=== PATIENT | female | born 1970 | race Caucasian/White ===

== ENCOUNTER 2019-09-14 15:54 | Emergency (ER) | payer MEDICAID ==
[~2019-09-14] VITALS: Ht 149.9 cm; Wt 61.4 kg
[~2019-09-14 15:54] MED LIST: CLON-527 PO; ESCI10TA45 PO; HYDR1TAB PO; IBUP-1984 PO; LEVO500T2 PO; LORA1TAB PO; METR-159 PO; ONDA4TAB59 PO; ORPH100T2 PO; TRAZ-91 PO; ZOF4T PO
[2019-09-14 17:30] LABS: BASOPHILS % (AUTO) 0.3 % (0-1); EOSINOPHILS # (AUTO) 0.1 X10'3 (0-0.9); EOSINOPHILS % (AUTO) 1.4 % (0-6); HEMOGLOBIN 13.6 g/dl (12.0-16.0); LYMPHOCYTES # (AUTO) 2.1 X10'3 (1.1-4.8); MEAN CORPUSCULAR HEMOGLOBIN 28.1 PG (27.0-31.0); MEAN CORPUSCULAR VOLUME 82.7 FL (78-98); MEAN PLATELET VOLUME 7.4 FL (7.4-10.4); MONOCYTES # (AUTO) 0.9 X10'3 (0-0.9); MONOCYTES % (AUTO) 9.6 % (2-12); NEUTROPHILS # (AUTO) 6.3 X10'3 (1.8-7.7); NEUTROPHILS % (AUTO) 66.7 % (42-75); PLATELET COUNT 441 X10'3 (140-440); RED BLOOD COUNT 4.84 X10'6 (4.20-5.60); RED CELL DISTRIBUTION WIDTH 13.4 % (11.5-14.5); WHITE BLOOD COUNT 9.5 X10'3 (4.5-11.0)
[2019-09-14 17:34] LABS: CLARITY,URINE SLIGHTLY CLOUDY (Clear); COLOR,URINE YELLOW (Yellow); GLUCOSE, URINE NEGATIVE (Neg); KETONES,URINE NEGATIVE (Neg); LEUKOCYTE ESTERASE ,URINE TRACE (Neg); NITRITES, URINE NEGATIVE (Neg); OCCULT BLOOD,URINE NEGATIVE (Neg); PH,URINE 5.5 (4.8-8.0); PROTEIN,URINE NEGATIVE (Neg); UROBILINOGEN,URINE 0.2 E.U/dL (0.2-1.0)
[2019-09-14 17:36] LABS: UA COLLECTION TYPE CLN CATCH MIDSTREAM
[2019-09-14 17:43] LABS: HCG SERUM QL NEGATIVE
[2019-09-14 17:44] LABS: ALANINE AMINOTRANSFERASE 28 U/L (12-78); ALBUMIN 3.2 G/DL (3.4-5.0); ALBUMIN/GLOBULIN RATIO 0.8 (1.1-1.5); ALKALINE PHOSPHATASE 90 IU/L (46-116); AMYLASE 40 U/L (25-115); ANION GAP 7 (8-16); ASPARTATE AMINO TRANSFERASE 20 U/L (10-37); BILIRUBIN,TOTAL 0.3 MG/DL (0.1-1.0); BLOOD UREA NITROGEN 10 MG/DL (7-18); BUN/CREATININE RATIO 13.2 (6.6-38.0); CALCIUM 8.6 MG/DL (8.5-10.1); CHLORIDE 100 MMOL/L (99-107); CREATININE 0.76 MG/DL (0.40-0.90); GLUCOSE 90 MG/DL (70-104); LIPASE 236 U/L (73-393); POTASSIUM 3.7 MMOL/L (3.5-5.1); SODIUM 134 MMOL/L (135-145); TOTAL CARBON DIOXIDE 26.8 MMOL/L (24-32); TOTAL PROTEIN 7.4 G/DL (6.4-8.2); eGFR 81 ML/MIN
[2019-09-14] MEDS ORDERED: normal saline 1000ML IV soln IVB ONE (17:45)
[2019-09-14] MEDS ORDERED: ondansetron/PF 4mg/2ml inj IV ONE (17:45)
[2019-09-14] MEDS ORDERED: fentaNYL/PF 50MCG/1 ML 2ML syringe IV ONE ×3 (17:45→20:15)
[2019-09-14] MEDS ORDERED: diphenhydrAMINE 50 mg/ml inj IV ONE (17:50)
[2019-09-14 17:51] LABS: BACTERIA,URINE 1+ /HPF (Neg); MUCUS STRANDS NONE SEEN /LPF (Neg); RBC,URINE 0-2 /HPF (0-2); SQUAMOUS EPITHELIAL CELL,UR MANY /LPF (FEW)
--- NOTE | 2019-09-14 17:51 | NUR ---
PT STATES SHE RECEIVED TORADOL INJECTIONS AT [facility], ALSO GETS STEROIDS, CALLED PHARMACY TO DELETE ALLERGY PT CONFIRMED NOT ALLERGIC TO TRADOL,
--- NOTE | 2019-09-14 18:12 | NUR ---
GAVE PT ANOTHER WARM BLANKET AND A GLASS OF ICE WATER FOR PO CHALLENGE ORDERED.
[2019-09-14] MEDS ORDERED: ketorolac tromethamine 15mg/ml inj. IV ONE (19:30)
[2019-09-14] MEDS ORDERED: AMOX-580 PO (19:36)
--- NOTE | 2019-09-14 20:12 | NUR ---
CHARLOTTE CASH MADE AWARE OF PT PRESSURE 97/72 TAKEN BEFORE DISCHARGE/FENTANYL ADMIN. FENTANYL DOSE CHANGED PER VERBAL ORDER TO 25MCG INSTEAD OF THE ORDERED 50MCG. ORDER CHANGED APPROPRIATELY
[2019-09-14 20:37] VITALS: BP 105/68
== END 2019-09-14 20:41 | disposition home or self-care (01) ==
LOC: ER 15:54
DX: K57.92 Diverticulitis of intestine, part unspecified, without perforation or abscess without bleeding (principal); R19.7 Diarrhea, unspecified; G89.29 Other chronic pain; F41.9 Anxiety disorder, unspecified; Z87.442 Personal history of urinary calculi; Z98.890 Other specified postprocedural states; Z88.5 Allergy status to narcotic agent; Z79.899 Other long term (current) drug therapy
CPT/HCPCS: 36415; 80053; 81001; 82150; 83690; 84703; 85025; 96361; 96374; 96375; 96376; 99283; J1200; J1885; J2405; J3010; J7030

== ENCOUNTER 2020-05-04 13:59 | Emergency (ER) | payer OTHER, MEDICAID ==
[~2020-05-04] VITALS: Ht 152.4 cm; Wt 66.0 kg
[2020-05-04 14:21] VITALS: BP 108/74
[2020-05-04] MEDS ORDERED: HYDROcodone/acetaminophen 10/325mg tab PO ONE (15:00)
[2020-05-04] MEDS ORDERED: TETanus/Pertussis (Acell)/Diphther VAC/PF (Tdap-Adult) 0.5ml syringe IMVAC ONE (15:00)
[2020-05-04] MEDS ORDERED: ondansetron 4mg rapidly disintigrating tab PO ONE (15:00)
[2020-05-04] MEDS ORDERED: LIDOcaine 1% W/epiNEPHrine 1:200,000 10ml vial IJ ONE (15:00)
[2020-05-04] MEDS ORDERED: bacitracin 15gm ointment TP ONE (15:00)
[2020-05-04] MEDS ORDERED: LORazepam 2 mg/ml vial IM ONE (15:20)
[2020-05-04] MEDS ORDERED: ketorolac trometh. 30mg/ml inj. IV ONE (15:45)
[2020-05-04] MEDS ORDERED: ceFAZolin 1gm IM kit IM STA (16:37)
[2020-05-04] MEDS ORDERED: CEPH500C5 PO (16:40)
[2020-05-04] MEDS ORDERED: HYDR-4383 PO (16:40)
[2020-05-04] MEDS ORDERED: ONDA4TAB6 PO (16:40)
== END 2020-05-04 17:32 | disposition home or self-care (01) ==
LOC: ER 14:00
DX: S82.092A Other fracture of left patella, initial encounter for closed fracture (principal); G89.29 Other chronic pain; F41.9 Anxiety disorder, unspecified; Z87.59 Personal history of other complications of pregnancy, childbirth and the puerperium; Z98.890 Other specified postprocedural states; Z88.5 Allergy status to narcotic agent; Z79.899 Other long term (current) drug therapy; V87.7XXA Person injured in collision between other specified motor vehicles (traffic), initial encounter; Y93.89 Activity, other specified; Y92.488 Other paved roadways as the place of occurrence of the external cause; Y99.8 Other external cause status
CPT/HCPCS: 12001; 73564; 73700; 90471; 90715; 96372; 96374; 99285; J0690; J1885; J2060

== ENCOUNTER 2022-12-26 21:08 | Emergency (ER) | payer MEDICAID ==
[~2022-12-26] VITALS: Ht 149.9 cm; Wt 72.6 kg
[~2022-12-26 21:08] MED LIST changes: +HYDR-4383 PO; +MELO-102 PO; +ONDA4TAB6 PO; -ORPH100T2 PO; +ORPH100T4 PO
[2022-12-26 21:18] VITALS: BP 95/65
[2022-12-26] MEDS ORDERED: ketorolac trometh inj. 60 MG/2 ML VIAL IM ONE (22:20)
[2022-12-26] MEDS ORDERED: ondansetron 4mg rapidly disintigrating tab PO ONE (22:20)
[2022-12-26] MEDS ORDERED: HYDROcodone/acetaminophen 5mg/325mg tablet PO ONE (22:20)
--- NOTE | 2022-12-26 22:41 | NUR ---
Pt to CT at this time
--- NOTE | 2022-12-27 | NUR ---
Pt and daughter previously at bedside noted to be absent from room; No personal belongings or clothing found in room; Pt had recently asked this RN if the pt could go outside and smoke and then come back; When told this was not allowed, the daughter verbalized understanding; Pt and daughter soon left ED without notifying staff of intention to leave; Pt did not have IV
== END 2022-12-27 00:28 | disposition left against medical advice (07) ==
LOC: ER 21:09
DX: G89.29 Other chronic pain (principal); M25.522 Pain in left elbow; F17.200 Nicotine dependence, unspecified, uncomplicated; F15.20 Other stimulant dependence, uncomplicated; Z88.5 Allergy status to narcotic agent
CPT/HCPCS: 73080; 73090; 73110; 73200; 93971; 96372; 99285; J1885

== ENCOUNTER 2023-12-19 07:07 | Emergency (ER) | payer MEDICAID ==
[~2023-12-19] VITALS: Ht 149.9 cm; Wt 76.1 kg
[2023-12-19 07:21] VITALS: BP 124/73; PULSE 90; RESP 16; TEMP 98.4; O2SAT 98
== END 2023-12-19 09:18 | disposition home or self-care (01) ==
LOC: ER 07:07
DX: M25.422 Effusion, left elbow (principal); M19.022 Primary osteoarthritis, left elbow; F15.90 Other stimulant use, unspecified, uncomplicated; Z88.5 Allergy status to narcotic agent; Z79.899 Other long term (current) drug therapy; Z79.2 Long term (current) use of antibiotics
CPT/HCPCS: 73080; 73200; 99284

== ENCOUNTER 2025-01-24 16:44 | Inpatient (IN) | payer MEDICAID ==
[~2025-01-24] VITALS: Ht 149.9 cm; Wt 79.0 kg
--- NOTE | 2025-01-24 16:53 | ELECTROCARDIOGRAPH REPORT ---
[facility] Test Date: 2025-01-24 Test Time: 16:47:46 Pat Name: ITALO WELLS Department: EMERGENCY ROOM Room: Gender: F Rn Lvn: TRAE : 1970 Requested By: MICHELLE DUTTON Order Number: [id number] Reading MD: Dr. Michelle Dutton Measurements Intervals [place] Rate: 60 P: 54 IA: 178 QRS: -15 QRSD: 89 T: 60 QT: 409 QTc: 409 Interpretive Statements Sinus rhythm Borderline left axis deviation Lateral infarct, acute (LAD) ST elevation, consider inferior injury Electronically Signed On 01-24-2025 18:10:[address] Michelle Dutton Please click the below link to view image of tracing.
--- NOTE | 2025-01-24 16:54 | Physician Documentation ---
History of Present Illness ~ Stated Complaint: CP Time Seen by MD: 16:54 OK to notify your PCP?: Yes Primary Medical Doctor: Roel pelaez Source: patient, family, RN/MD, EMS, RN notes reviewed, EMS notes reviewed, old records Mode of Arrival: EMS Exam Limitations: no limitations HPI 54 year old female seen in bed eleven presents to the emergency department for complaints of chest pain that began at 1600 today. Patient states that she was i n her kitchen cooking a meal when she began having a dull and achy chest pain that radiates to her back. At the time she reports feeling nauseous with diaphoresis. She states she had laid down to help alleviate her pain but called EMS when it did not resolve. Per EMS patient was given Nitro and Aspirin en route. Patient endorses smoking and states she quit meth five years ago. She states that she has been stressed recently but denies any increased weakness or fatigue. Patient states that she slept normally last night. Medication Reconciliation Allergies: Coded Allergies: morphine (Verified Allergy, Unknown, 01/24/25) Scheduled Clonazepam* (Klonopin*), 1 MG PO HS, (Reported) Escitalopram Oxalate* (Lexapro*), 10 MG PO BID, (Reported) Hydrocodone/Acetaminophen (Vicodin 5-500 Tablet), 1 TAB PO BID, (Reported) Hydrocodone/Acetaminophen ([place] 5-325 Tablet), 1 TAB PO TID PRN Ibuprofen* (Motrin*), 1 TAB PO Q8H Levofloxacin (Levaquin), 500 MG PO DAILY Lorazepam* (Ativan*), 1 MG PO DAILY, (Reported) Meloxicam (Meloxicam), 1 TAB PO DAILY Metronidazole* (Flagyl*), 500 MG PO QID Ondansetron Hcl (Ondansetron Hcl), 4 MG PO Q8H PRN N/V Ondansetron Hcl (Ondansetron Hcl), 4 MG PO Q6H Ondansetron Hcl (Zofran), 1 TAB PO Q6H Orphenadrine Citrate (Norflex), 1 TABLET PO BID Trazodone Hcl* (Trazodone Hcl*), 150 MG PO HS, (Reported) Scheduled PRN Ondansetron ODT* (Zofran ODT*), 8 MG PO Q6H PRN Past Medical History Past Medical History: Bowel Obstruction, Diverticulitis, Kidney Stones, Chronic Back Pain, Anxiety Past Surgical History: orthopedic surgeries Alcohol Use: None Drug Use: methamphetamine Lives with: S/O, Family Lives In: Home Occupation: disabled Review of Systems All Other Systems at this time: Reviewed and Negative ROS As stated above in the HPI, otherwise all systems are reviewed and negative. Physical Exam Vital Signs: RN Vital Signs have been reviewed: Yes Pulse Oximetry Reflects: adequate oxygenation Physical Exam General: Patient was uncomfortable appearing. The patient is well developed, well nourished, nontoxic appearing and is in no acute distress. Skin: [place], warm and dry with no rashes. HEENT: Head was normocephalic and atraumatic. Eyes - pupils equal, round, reactive to light and accommodation. Extraocular movements were intact. Conjunctivae were nonicteric. Ears - bilateral tympanic membranes were normal. The mouth and oropharynx were clear with moist mucous membranes. There were no pharyngeal exudates or erythema. Neck: Supple and nontender. There was no jugular venous distention, lymphadenopathy, thyromegaly or masses. Chest: Clear to auscultation bilaterally without wheezes, rales or rhonchi. No accessory muscle use. No dullness to percussion. Heart: Rate regular and rhythmic. S1, S2. No murmurs. Palpation of the chest wall was normal. No rubs or thrills. Abdomen: Soft, nontender and nondistended. Positive bowel sounds. No guarding or rebound. No hepatosplenomegaly or palpable masses. Extremities: No cyanosis, clubbing or edema. The patient moves all extremities. Pulses were equal and symmetric. Neurologic: Cranial nerves II-XII were intact. Sensation was intact to light touch throughout. Motor strength was 5/5 in all four extremities. Deep tendon reflexes were intact in both upper and lower extremities. Psychologic: The patient was oriented to person, place and time. The patient demonstrated appropriate judgement and insight. Progress Progress Note 1710: The case was discussed with the enrolled nurse Harish Knapp who was informed on the patients case and consulted requesting a repeat EKG. 1755: The hospitalist was spoken to at this time and was informed on the patients case and kindly agreed to admission. Results/Orders Reviewed/noted all lab results: Yes Results/Orders Orders - JUSTO ISSA MD Chest,Single View (01/24/25 16:51) Monitor (01/24/25 16:51) Saline Lock (01/24/25 16:51) Oxygen (01/24/25 16:51) Electrocardiogram (01/24/25 16:51) Hs Troponin I W Calculations (01/24/25 18:51) Hs Troponin I W Calculations (01/24/25 19:51) Electrocardiogram (01/24/25 17:21) Heparin 25,000 Unit/250ml Bag (Heparin 2 (01/24/25 17:40) Normal Saline 1000ml (Sodium Chloride 10 (01/24/25 17:45) PTT (01/24/25 17:47) Heparin 10,000 Unit/Ml 1ml (Heparin 10,0 (01/24/25 17:55) Cardiac Ptt (01/25/25 00:00) Completed Orders - JUSTO ISSA MD Chest,Single View (01/24/25 16:51) Cbc/Diff (01/24/25 16:51) PBNP (01/24/25 16:51) Electrocardiogram (01/24/25 16:51) Hs Troponin I W Calculations (01/24/25 16:51) CMP (01/24/25 16:58) Hydromorphone 1 Mg/Ml/Pf (Dilaudid Inj.) (01/24/25 17:00) Nitroglycerin 0.2mg/Hour Patch (Nitro-Du (01/24/25 17:00) Electrocardiogram (01/24/25 17:21) Ondansetron Inj. (Zofran 4mg/2ml Vial) (01/24/25 17:35) Heparin 10,000 Unit/Ml 1ml (Heparin 10,0 (01/24/25 17:40) Hydromorphone 0.5 Mg/0.5 Ml/Pf (Dilaudid (01/24/25 17:40) Normal Saline 1000ml (Sodium Chloride 10 (01/24/25 17:45) Pt Inr (01/24/25 17:44) PTT (01/24/25 17:44) Heparin 10,000 Unit/Ml 1ml (Heparin 10,0 (01/24/25 17:50) Message To Nursing (01/24/25 17:50) Medications Received in ER Medications (Trade) Dose Ordered Sig/Jake Route PRN Reason Start Time Stop Time Status Last Admin Dose Admin (Zofran 4mg/2ml vial) 4 mg ONCE ONCE IV 01/24/25 17:35 01/24/25 17:36 DC 01/24/25 17:53 4 MG Heparin Sodium/ Dextrose 250 ml @ 9 mls/hr [id number] PRN IV TO MAINTAIN PTT WITHIN RANGE 01/24/25 17:40 01/24/25 17:59 9 MLS/HR (Dilaudid inj.) 0.5 mg ONCE ONCE IV 01/24/25 17:40 01/24/25 17:49 DC 01/24/25 17:54 0.5 MG (sodium chloride 1000ml IV soln) 500 ml ONCE ONCE IVB 01/24/25 17:45 01/24/25 17:46 DC 01/24/25 18:02 500 ML Sodium Chloride 1,000 ml @ 200 mls/hr Q5H ONCE IV 01/24/25 17:45 01/24/25 22:44 01/24/25 18:02 200 MLS/HR (heparin 10,000 unit/ml 1ml inj) 4,000 units ONCE ONCE IV 01/24/25 17:50 01/24/25 17:51 DC 01/24/25 17:56 4,000 UNITS Vital Signs 01/24/25 01/24/25 01/24/25 01/24/25 16:49 17:22 17:22 17:37 Temp 98.0 98.0 98.0 Pulse 75 53 71 Resp 12 22 22 16 B/P (MAP) 126/80 142/84 (103) 97/72 (80) Pulse Ox 96 98 96 O2 Flow Rate 0 0 0 01/24/25 01/24/25 17:54 18:34 Resp 20 16 B/P (MAP) Laboratory Tests Test 01/24/25 17:23 White Blood Count 9.8 Red Blood Count 5.05 Hemoglobin 14.7 Hematocrit 43.8 Mean Corpuscular Volume 86.6 Mean Corpuscular Hemoglobin 29.1 Mean Corpuscular Hemoglobin Concent 33.7 Red Cell Distribution Width 12.6 Platelet Count 405 Mean Platelet Volume 8.4 Neutrophils (%) (Auto) 62.6 Lymphocytes (%) (Auto) 24.8 Monocytes (%) (Auto) 8.3 Eosinophils (%) (Auto) 3.5 Basophils (%) (Auto) 0.8 Neutrophils # (Auto) 6.2 Lymphocytes # (Auto) 2.4 Monocytes # (Auto) 0.8 Eosinophils # (Auto) 0.3 Basophils # (Auto) 0.1 CBC Comment Prothrombin Time 9.9 INR International Normalized Ratio 1.0 Activated Partial Thromboplast Time 27 Coagulation Comments Sodium Level 138 Potassium Level 4.4 Chloride Level 100 Carbon Dioxide Level 27.8 Anion Gap 10 Blood Urea Nitrogen 16 Creatinine 0.79 Estimated GFR/1.73 m2 76 BUN/Creatinine Ratio 20.3 H Glucose Level 125 H Calcium Level 9.2 Total Bilirubin 0.3 Aspartate Amino Transf (AST/SGOT) 30 Alanine Aminotransferase (ALT/SGPT) 26 Alkaline Phosphatase 106 Troponin I High Sensitivity 38 Pro-B-Type Natriuretic Peptide 32 Total Protein 8.9 H Albumin 3.9 Globulin 5.0 H Albumin/Globulin Ratio 0.8 L Chemistry Comments Re-Evaluation Re-Evaluation : Re-Evaluation: Improved Progress This patient appears ill. I am a bit concerned about the patient. The patient 's initial troponin was negative. However repeat EKG showed dynamic changes. She is also having significant pain. She received aspirin nitro and because of the high suspicion of a non ST-elevation ME patient will receive heparin bolus and drip. Mediastinum was within normal limits was not widened. Patient received Dilaudid nitro and aspirin. She also received some fluids. Ultimately patient is feeling much better and admitted to the hospitalist service for further workup and care for possible stress test or cardiac catheterization. CBC within normal limits without anemia no leukocytosis chemistry within normal limits. Troponin 1. Is 38. Electrolytes are all reassuring and within normal limits coagulation shows an INR of 1.0 and a PT of 9.9. Continuous campus monitor interpretation shows normal sinus rhythm heart rate 70s, no ectopy, normal, my interpretation. Pulse oximetry monitor interpretation shows normal oxygenation at 98% room air, normal, my interpretation. EKG/XRAY/CT/US/VASC/MRI EKG #1: Additional Comment [facility] Test Date: 2025-01-24 Test Time: 16:47:46 Pat Name: ITALO LOUISBRANDYN Department: EMERGENCY ROOM Room: Gender: F Hospice Nurse: TRAE : 1970 Requested By: JUSTO ISSA Order Number: [id number] Reading MD: Dr. Jusot Issa Measurements Intervals [place] Rate: 60 P: 54 MT: 178 QRS: -15 QRSD: 89 T: 60 QT: 409 QTc: 409 Interpretive Statements Sinus rhythm Borderline left axis deviation Lateral infarct, acute (LAD) ST elevation, consider inferior injury Electronically Signed On 01-24-2025 18:10:[address] Justo Issa Please click the below link to view image of tracing. EKG Date and Time:01/24/25 1647 Electronically Signed by: JUSTO ISSA MD Date and Time: 01/24/251809 EKG #2: Additional Comment [facility] Test Date: 2025-01-24 Test Time: 17:31:54 Pat Name: ITALO WELLS Department: [facility] Patient ID: [facility]-[id number] Room: Gender: F Hospice Nurse: : 1970 Requested By: JUSTO ISSA Order Number: [id number] Reading MD: Dr. Justo Issa Measurements Intervals [place] Rate: 53 P: 52 MT: 184 QRS: -1 QRSD: 93 T: 49 QT: 429 QTc: 403 Interpretive Statements Sinus bradycardia Electronically Signed On 01-24-2025 18:10:[address] Justo Issa Please click the below link to view image of tracing. EKG Date and Time:01/24/25 1731 Electronically Signed by: JUSTO ISSA MD Date and Time: 01/24/251809 Chest X-Ray : Additional Comments CHEST RADIOGRAPH Indication: CP Technique: Single frontal view of the chest was obtained COMPARISON: None FINDINGS: Lines and Tubes: None Lungs: Clear Pleura: No effusion. No pneumothorax. Cardiomediastinal contours: Unremarkable Bones: Unremarkable IMPRESSION: No acute disease. Electronically Signed by:ROYAL ALONSO MD Date & Time: 01/24/25 0008 Heart Score: Heart Score Response (Comments) Value History Highly Suspicious 2 EKG Repolarization Disturb 1 Age 45-64 1 Risk Factors 1 or 2 risk factors 1 Troponin Normal limit 0 Total 5 Medical Decision Making Additional info obtained from: old records Differential Dx:Considerations: Include: angina, aortic dissection, chest wall pain, CHF, costochondritis, gastritis, myocardial infarction, pericarditis, pleuritis, pancreatitis, pneumonia, pneumothorax, pulmonary embolus, other Departure Time of Disposition: 17:55 Disposition: ADMITTED INPATIENT Admitted to Inpatient Unit: yes, to hospitalist Admission Level of Care: PCU with Tele Impression: Primary Impression: NSTEMI (non-ST elevated myocardial infarction) Additional Impression: Chest pain Qualified Codes: I25.9 - Chronic ischemic heart disease, unspecified Condition: Fair Referrals: NO PRIMARY CARE PROVIDER (PCP) Education Educated: Patient, Family Educated regarding: diagnosis, treatment, prognosis, need for follow up, other Critical Care Note Total Time (mins): 30 Critical Care Note The very real possibility of a deterioration of this patient's condition required the highest level of my preparedness for sudden, emergent intervention. I provided critical care services, which included medication orders, frequent reevaluations of the patient's condition and response to treatment, ordering and reviewing test results, and discussing the case with various consultants. Excludes time spent performing separately billable procedures. The critical care time associated with the care of the patient was 30 minutes. Signature Scribe Signature: Scribed for Justo Issa MD by Sandra Crooks . 01/24/25 17:05 Attestation: The note accurately reflects work and decisions made by me.Justo Issa MD 01/24/25 18:52 JUSTO ISSA MD January 24, 2025 16:54 SANDRA SEGURA January 24, 2025 17:05
[2025-01-24] MEDS: nitroGLYCERIN 0.2mg/hour patch TD ONE (17:32)
[2025-01-24] MEDS: HYDROmorphone 1 mg/ml syringe IV ONE (17:32)
--- NOTE | 2025-01-24 17:34 | ELECTROCARDIOGRAPH REPORT ---
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 Michelle Dutton Measurements Intervals [place] Rate: 53 P: 52 CO: 184 QRS: -1 QRSD: 93 T: 49 QT: 429 QTc: 403 Interpretive Statements Sinus bradycardia Electronically Signed On 01-24-2025 18:10:[address] Michelle Dutton Please click the below link to view image of tracing.
[2025-01-24 17:36] LABS: BASOPHILS # (AUTO) 0.1 X10'3 (0-0.2); BASOPHILS % (AUTO) 0.8 % (0-1); EOSINOPHILS # (AUTO) 0.3 X10'3 (0-0.9); EOSINOPHILS % (AUTO) 3.5 % (0-6); HEMATOCRIT 43.8 % (35.0-45.0); HEMOGLOBIN 14.7 g/dl (12.0-16.0); LYMPHOCYTES # (AUTO) 2.4 X10'3 (1.1-4.8); LYMPHOCYTES % (AUTO) 24.8 % (21-51); MEAN CORPUSCULAR HEMOGLOBIN 29.1 PG (27.0-31.0); MEAN CORPUSCULAR HGB CONC 33.7 g/dL (33.0-36.5); MEAN CORPUSCULAR VOLUME 86.6 FL (78-98); MEAN PLATELET VOLUME 8.4 FL (7.4-10.4); MONOCYTES # (AUTO) 0.8 X10'3 (0-0.9); MONOCYTES % (AUTO) 8.3 % (2-12); NEUTROPHILS # (AUTO) 6.2 X10'3 (1.8-7.7); NEUTROPHILS % (AUTO) 62.6 % (42-75); PLATELET COUNT 405 X10'3 (140-440); RED BLOOD COUNT 5.05 X10'6 (4.20-5.60); RED CELL DISTRIBUTION WIDTH 12.6 % (11.5-14.5); WHITE BLOOD COUNT 9.8 X10'3 (4.5-11.0)
[2025-01-24 17:52] LABS: ALANINE AMINOTRANSFERASE 26 U/L (12-78); ALBUMIN 3.9 G/DL (3.4-5.0); ALBUMIN/GLOBULIN RATIO 0.8 (1.1-1.5); ALKALINE PHOSPHATASE 106 IU/L (46-116); ANION GAP 10 (8-16); ASPARTATE AMINO TRANSFERASE 30 U/L (10-37); BILIRUBIN,TOTAL 0.3 MG/DL (0.1-1.0); BLOOD UREA NITROGEN 16 MG/DL (7-18); BUN/CREATININE RATIO 20.3 (10.0-20.0); CALCIUM 9.2 MG/DL (8.5-10.1); CHLORIDE 100 MMOL/L (99-107); CREATININE 0.79 MG/DL (0.40-0.90); GLUCOSE 125 MG/DL (70-104); POTASSIUM 4.4 MMOL/L (3.5-5.1); SODIUM 138 MMOL/L (135-145); TOTAL CARBON DIOXIDE 27.8 MMOL/L (24-32); TOTAL PROTEIN 8.9 G/DL (6.4-8.2); eCRCL 55 ML/MIN; eGFR 76 ML/MIN
[2025-01-24] MEDS: ondansetron/PF 4mg/2ml inj IV ONE (17:53)
[2025-01-24] MEDS: HYDROmorphone inj. 0.5 MG/0.5 ML DISP.SYRIN IV ONE (17:54)
[2025-01-24] MEDS: heparin 10,000 units/1 ML INJ IV ONE ×2 (17:56→18:07)
[2025-01-24 17:59] LABS: PRO BRAIN NATRIURETIC PEPTIDE 32 PG/ML (0-125)
[2025-01-24] MEDS: heparin 25,000 UNIT/250ml bag 250 ML IV PRN (17:59)
--- NOTE | 2025-01-24 18:01 | RADIOLOGY REPORT ---
CHEST RADIOGRAPH Indication: CP Technique: Single frontal view of the chest was obtained COMPARISON: None FINDINGS: Lines and Tubes: None Lungs: Clear Pleura: No effusion. No pneumothorax. Cardiomediastinal contours: Unremarkable Bones: Unremarkable IMPRESSION: No acute disease.
[2025-01-24] MEDS: normal saline 1000ML IV soln IVB ONE (18:02)
[2025-01-24] MEDS: normal saline 1000ml 1,000 ML IV ONE (18:02)
[2025-01-24] MEDS: MESSAGE TO NURSING IV ONE (18:03)
[2025-01-24 18:07] LABS: APTT 27 SECONDS (22-32); PROTHROMBIN TIME 9.9 SECONDS (9.0-12.0)
[2025-01-24] MEDS ORDERED: magnesium Cl slow-release 64mg tablet PO PRN (19:25)
[2025-01-24] MEDS ORDERED: potassium Cl 20 mEq SR tablet PO PRN (19:25)
[2025-01-24] MEDS ORDERED: magnesium sulf-water 4G/100mL 100 ML IV PRN (19:25)
[2025-01-24] MEDS ORDERED: acetaminophen 325mg tablet PO PRN (19:25)
[2025-01-24] MEDS ORDERED: magnesium hydroxide 30ml (MOM) UD suspension PO PRN (19:25)
[2025-01-24] MEDS ORDERED: magnesium sulf-water 2g/50mL 50 ML IV PRN (19:25)
[2025-01-24] MEDS ORDERED: potassium Cl 40MEQ/1/2NS 520ml 520 ML IV PRN (19:25)
[2025-01-24] MEDS ORDERED: mag hydrox/Alum hydrox/simeth 30ml oral suspension PO PRN (19:25)
[2025-01-24] MEDS ORDERED: nitroGLYCERIN 0.4mg SUBLingual tab SL PRN (19:25)
--- NOTE | 2025-01-24 19:41 | HISTORY AND PHYSICAL-Residence ---
History & Physical Providers to CC Resident Creating Document: FERNANDA CHEUNG, RES CC: LEONID STARK MD ~ History of Present Illness Primary Medical Doctor: Roel pelaez Reason for Admit\Complaint: Chest pain since this morning History of Present Illness A 54-year-old female with a past medical history of rheumatoid arthritis with residual deformities presented to the ED with acute onset of severe chest pain that started this morning. Patient reportedly was working in the kitchen as she was hungry making some food for herself when she started to have cold sweats, nausea and discomfort leading her to go back to bed and rest for some time. After with the patient's started feeling better she went back to the kitchen to make her some food when chest pain started associated with dry heaving and cold sweats described as substernal crushing chest pain with a severity of 8/10, nonradiating. Immediately EMS was called, sublingual nitroglycerin was given twice within interval of 5 minutes that did not help. After she came to the ED at [facility] patient was given aspirin 325 mg and started on heparin drip with some pain medication that relieved her of the chest pain. Patient denies similar history in the past. Allergies: Coded Allergies: morphine (Verified Allergy, Unknown, 01/24/25) Home Medications Home Medications Active Meloxicam 15 Mg Tablet 1 Tab PO DAILY 30 Days Zofran (Ondansetron Hcl) 4 Mg Tablet 1 Tab PO Q6H 5 Days [place] 5-325 Tablet (Hydrocodone/Acetaminophen) 1 Each Tablet 1 Tab PO TID PRN 5 Days Norflex (Orphenadrine Citrate) 100 Mg Tablet.sa 1 Tablet PO BID Ondansetron Hcl (Ondansetron HCl) 4 Mg Tablet 4 Mg PO Q6H Motrin* (Ibuprofen) 400 Mg Tablet 1 Tab PO Q8H Ondansetron Hcl (Ondansetron HCl) 4 Mg Tablet 4 Mg PO Q8H PRN N/V Flagyl* (Metronidazole) 500 Mg Tablet 500 Mg PO QID Levaquin (Levofloxacin) 500 Mg Tablet 500 Mg PO DAILY Zofran ODT* (Ondansetron HCl) 4 Mg Tab.rapdis 8 Mg PO Q6H PRN Reported Vicodin 5-500 Tablet (Acetaminophen/Hydrocodone Bitart) 5 Mg/500 Mg Tablet 1 Tab PO BID Ativan* (Lorazepam) 1 Mg Tablet 1 Mg PO DAILY Trazodone Hcl* (Trazodone HCl) 100 Mg Tablet 150 Mg PO HS Klonopin* (Clonazepam) 1 Mg Tablet 1 Mg PO HS Lexapro* (Escitalopram Oxalate) 10 Mg Tablet 10 Mg PO BID Past Medical History Past Medical History Rheumatoid arthritis Diverticulitis Carpal tunnel syndrome Past Surgical History Surgical History Comment C2-C7 laminectomy Right total knee replacement Arthritis status post Repair of the right wrist with implant placement Appendicectomy Past Social History Social History Comment Patient lives at home by herself Goes to [facility] for primary care Sees a elementary school social worker at [facility], does not remember the name 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 Is independent at baseline with ambulation Does not consume alcohol or illicit drugs or marijuana Smokes half pack of cigarettes every day for the last 10 years Smoking: Cigarettes, Less than 1 pack/day Alcohol Use: None Drug Use: Methamphetamine Lives with: S/O, Family Lives In: Home Occupation: disabled ROS ROS All other systems reviewed in full and negative except for the pertinent positives mentioned in the HPI Exam Vitals: Vital Signs Date Time Temp Pulse Resp B/P (MAP) Pulse Ox O2 Delivery O2 Flow Rate FiO2 01/24/25 19:06 82 16 99/74 (82) 95 0 01/24/25 17:37 98.0 General: General: Alert, awake, oriented, not in acute distress HEENT: PERRLA, no icterus, pallor, lymphadenopathy, carotid bruit Respiratory system: Multi Spider angiomata present in the chest, Bilateral vesicular breath sounds heard, no adventitious breath sounds CVS: S1-S2 heard, no murmurs/rubs/gallop GI: Soft, nontender, no organomegaly, no guarding/rigidity, bowel sounds present Neuro: No focal neurological deficits present Extremities: No edema cyanosis clubbing Musculoskeletal: Swelling and deformity of the left forearm at the site of elbow, surgical scar on the right wrist status post surgery for arthritis, surgical scar present on the right knee Skin: Warm and dry Diagnostic Data Last Recorded Lab Results: 01/24/25 1723 01/24/25 1723 Diagnostic Data: Laboratory Tests Test 01/24/25 17:23 Prothrombin Time 9.9 SECONDS (9.0-12.0) INR International Normalized Ratio 1.0 INR Activated Partial Thromboplast Time 27 SECONDS (22-32) Coagulation Comments Advance Care Planning Advanced Care plannin - 30 Minutes (I spent 20 minutes discussing various resuscitative measures and the patient decided to be full code) Additional Plan Assessment: A 54-year-old female presented to the ED with a crushing chest pain. On further investigations patient was found to have up trending troponins and EKG changes. Patient is admitted for the evaluation and management of NSTEMI. Plan: NSTEMI [place]: 3 Up trending troponins, EKG indicating ST depressions in lead two, V2, aVL Started on heparin drip, received 325 mg of aspirin in the ED Follow up with echo, lipid panel, A1c Started on atorvastatin 80 mg from today, aspirin 81 mg from tomorrow Consider starting carvedilol 3.25 mg p.o. b.i.d. and Jb or ARB in view of optimization for GDM T Sublingual nitroglycerin 0.4 mg Q 5 minutes p.r.n. Dilaudid for uncontrolled chest pain with sublingual nitroglycerin Cardiology consultation in a.m. Rheumatoid arthritis with residual deformities Follow up with ESR, CRP, lactic acid Follow up with ultrasound of the liver Start on any medication that she takes at home Pending med rec Code status: Full code Diet: Heart healthy diet, NPO after midnight Anticoagulation: Heparin drip, aspirin 81 mg Disposition: Admit to PCU, possible cardiac catheterization in a.m. with Cardiology consultation Fernanda Cheung MD Internal Medicine, PGY 1 Date of Service: January 24, 2025 Billing Provider: LEONID STARK MD, SIVA, RES January 24, 2025 19:41
--- NOTE | 2025-01-24 19:46 | ELECTROCARDIOGRAPH REPORT ---
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 Justo Issa Measurements Intervals [place] Rate: 69 P: 56 ME: 191 QRS: -33 QRSD: 86 T: 38 QT: 397 QTc: 426 Interpretive Statements Sinus rhythm Left ventricular hypertrophy Electronically Signed On 01-25-2025 6:34:[address] Justo Issa Please click the below link to view image of tracing.
[2025-01-24 19:57] LABS: C-REACTIVE PROTEIN 1.25 MG/DL (0.0-0.5)
[2025-01-24] MEDS: K and/or MAG REPLACEMENT MC SCH (20:01)
[2025-01-24] MEDS: atorvastatin 20mg tablet PO SCH (20:11)
[2025-01-24] MEDS: docusate sod 100mg capsule PO SCH (20:11)
[2025-01-24] MEDS: nicotine 14mg patch - 24hr TD ONE (20:11)
[2025-01-24] MEDS: HYDROmorphone inj. 0.5 MG/0.5 ML DISP.SYRIN IV PRN (20:12)
[2025-01-24] MEDS: ondansetron/PF 4mg/2ml inj IV PRN (20:12)
[2025-01-24 20:45] LABS: BILIRUBIN,URINE NEGATIVE (Neg); CLARITY,URINE CLEAR (Clear); COLOR,URINE YELLOW (Yellow); GLUCOSE, URINE NEGATIVE (Neg); KETONES,URINE NEGATIVE (Neg); LEUKOCYTE ESTERASE ,URINE NEGATIVE (Neg); NITRITES, URINE NEGATIVE (Neg); OCCULT BLOOD,URINE NEGATIVE (Neg); PROTEIN,URINE NEGATIVE (Neg); UROBILINOGEN,URINE 0.2 E.U/dL (0.2-1.0)
[2025-01-24 20:48] LABS: UA COLLECTION TYPE CLN CATCH MIDSTREAM
[2025-01-24 20:50] LABS: HEMOGLOBIN A1C 5.6 % (4.5-6.2)
[2025-01-24 22:00] VITALS: BP 135/76; PULSE 74; RESP 20; TEMP 97; O2SAT 97
[2025-01-25] VITALS (16 sets, daily range): BP systolic 72–117; BP diastolic 43–72; PULSE 61–94; RESP 10–20; TEMP 96.9–98; O2SAT 92–100
[2025-01-25 01:23] LABS: BASOPHILS # (AUTO) 0.1 X10'3 (0-0.2); BASOPHILS % (AUTO) 0.7 % (0-1); EOSINOPHILS # (AUTO) 0.2 X10'3 (0-0.9); EOSINOPHILS % (AUTO) 2.6 % (0-6); HEMATOCRIT 38.2 % (35.0-45.0); HEMOGLOBIN 13.2 g/dl (12.0-16.0); LYMPHOCYTES # (AUTO) 2.1 X10'3 (1.1-4.8); LYMPHOCYTES % (AUTO) 27.5 % (21-51); MEAN CORPUSCULAR HEMOGLOBIN 29.9 PG (27.0-31.0); MEAN CORPUSCULAR HGB CONC 34.6 g/dL (33.0-36.5); MEAN CORPUSCULAR VOLUME 86.3 FL (78-98); MEAN PLATELET VOLUME 8.5 FL (7.4-10.4); MONOCYTES # (AUTO) 0.6 X10'3 (0-0.9); MONOCYTES % (AUTO) 7.6 % (2-12); NEUTROPHILS # (AUTO) 4.7 X10'3 (1.8-7.7); NEUTROPHILS % (AUTO) 61.6 % (42-75); PLATELET COUNT 323 X10'3 (140-440); RED BLOOD COUNT 4.42 X10'6 (4.20-5.60); RED CELL DISTRIBUTION WIDTH 12.5 % (11.5-14.5); WHITE BLOOD COUNT 7.6 X10'3 (4.5-11.0)
[2025-01-25] MEDS ORDERED: HYDR-3965 PO (01:25)
[2025-01-25] MEDS ORDERED: IBUP-1984 PO (01:25)
[2025-01-25] MEDS ORDERED: MELO-102 PO (01:25)
[2025-01-25] MEDS ORDERED: ONDA-103 PO (01:25)
[2025-01-25 01:28] LABS: PROTHROMBIN TIME 10.3 SECONDS (9.0-12.0)
[2025-01-25 01:30] LABS: ALANINE AMINOTRANSFERASE 24 U/L (12-78); ALBUMIN/GLOBULIN RATIO 0.8 (1.1-1.5); ALKALINE PHOSPHATASE 88 IU/L (46-116); ANION GAP 4 (8-16); ASPARTATE AMINO TRANSFERASE 27 U/L (10-37); BILIRUBIN,TOTAL 0.4 MG/DL (0.1-1.0); BLOOD UREA NITROGEN 13 MG/DL (7-18); CALCIUM 8.3 MG/DL (8.5-10.1); CHLORIDE 107 MMOL/L (99-107); CHOL/HDL RATIO 3.3 (0.00-4.99); CHOLESTEROL 169 MG/DL (0-200); CREATININE 0.62 MG/DL (0.40-0.90); GLUCOSE 102 MG/DL (70-104); HDL CHOLESTEROL 51 MG/DL (35-60); LDL CHOLESTEROL 109 MG/DL (50-100); MAGNESIUM 2.1 MG/DL (1.5-2.4); POTASSIUM 3.6 MMOL/L (3.5-5.1); SODIUM 139 MMOL/L (135-145); TOTAL CARBON DIOXIDE 28.2 MMOL/L (24-32); TOTAL PROTEIN 6.9 G/DL (6.4-8.2); TRIGLYCERIDES 98 MG/DL (20-135); eCRCL 70 ML/MIN; eGFR > 90 ML/MIN
[2025-01-25] MEDS: heparin 10,000 units/1 ML INJ IV PRN (02:31)
[2025-01-25] MEDS: MESSAGE TO NURSING IV ONE (02:36)
--- NOTE | 2025-01-25 09:07 | RADIOLOGY REPORT ---
Technique: Real-time ultrasound imaging of the abdomen was performed with grayscale and color Doppler . Indication: Rheumatoid arthritis severe, look for any changes in the liver Comparison: None Findings: Liver measures 15.2 cm. It is increased in echogenicity and echotexture without focal mass. Portal v ein is normal in caliber and demonstrates normal hepatopetal flow. Gallbladder demonstrates no evidence for cholelithiasis. There is no pericholecystic fluid. The wall thickness is normal. The common bile duct measures 6 mm. No intrahepatic biliary ductal dilatation. The right kidney measures 11.5 cm. There is no hydronephrosis or sonographic evidence of nephrolithia sis. The visualized portion of the pancreas is unremarkable. The visualized portion of the IVC is unremarkable. Impression: 1. Echogenic liver which can be seen with hepatic steatosis, cirrhosis.
[2025-01-25] MEDS ORDERED: fentaNYL/PF 50MCG/1 ML 2ML syringe ONE (09:09)
[2025-01-25] MEDS ORDERED: iohexol 350MG/ML 100ml bottle IV ONE ×2 (09:09→09:42)
[2025-01-25] MEDS ORDERED: verapamil 2.5 mg/ml inj IV ONE (09:09)
[2025-01-25] MEDS ORDERED: midazolam 1 mg/ML 2ml injection ONE ×3 (09:09→10:33)
[2025-01-25] MEDS ORDERED: heparin 1,000unit/ml 10ml vial 10 ML ONE (09:09)
[2025-01-25] MEDS ORDERED: LIDOcaine 1% (10mg/ml) 2ml vial ONE (09:09)
[2025-01-25] MEDS ORDERED: nitroGLYCERIN 500mcg/5mL D5W 5 ML IV ONE (09:10)
[2025-01-25] MEDS ORDERED: LIDOcaine 1% 30ml preserv. free vial ONE (09:44)
[2025-01-25] MEDS ORDERED: hydrocortisone sod succ/PF 100mg/2ml inj. ONE (10:28)
[2025-01-25] MEDS ORDERED: furosemide 40mg/4ml inj ONE (10:35)
[2025-01-25] MEDS ORDERED: nitroGLYCERIN 0.4mg SUBLingual tab SL ONE (10:40)
[2025-01-25] MEDS ORDERED: proCHLORperazine 10 MG/2 ml inj ONE (10:42)
[2025-01-25] MEDS ORDERED: iohexol 350 MG/ML 50ML vial IV ONE (10:47)
[2025-01-25] MEDS ORDERED: ticagrelor 90mg tablet ONE (10:49)
[2025-01-25] MEDS ORDERED: aspirin 325mg tablet ONE (10:49)
[2025-01-25] MEDS ORDERED: OXAZEpam 15mg capsule PO PRN (11:55)
[2025-01-25] MEDS ORDERED: proCHLORperazine 10 MG/2 ml inj IV PRN (11:55)
[2025-01-25] MEDS ORDERED: nitroGLYCERIN 0.4mg SUBLingual tab SL PRN (11:55)
[2025-01-25] MEDS ORDERED: ondansetron 4mg rapidly disintigrating tab PO PRN (12:15)
[2025-01-25] MEDS ORDERED: HYDROcodone/acetaminophen 5mg/325mg tablet PO PRN (12:15)
--- NOTE | 2025-01-25 15:55 | CARDIOLOGY REPORT ---
APPROVED REPORT EXAM: Comprehensive 2D, Doppler, and color-flow Echocardiogram. Patient Location: [address] Blood Pressure: 117/61 mmHg Heart Rate: 78 bpm Rhythm: SINUS Indications CORONARY ARTERY DISEASE HS TROPONIN 336, 911, 1722 S/P STENT X1 Alum Mixer: Ernst Knapp MD (consult) Previous echo: none 2D Dimensions IVSd 1.1 (0.7-1.1cm) LVDd 4.1 cm PWd 1.1 (0.7-1.1cm) IVSs 1.2 (0.8-1.2cm) LVDs 2.4 (2.5-4.0cm) PWs 1.4 (0.8-1.2cm) LVOT Diameter 2.21 (1.8-2.4cm) LVEF(%) 72.2 (>50%) Ao Asc Diam.2.91 cmFS (%) 40.9 % SV 54.5 ml CO 4.1 L/min M-Mode Dimensions Left Atrium(MM) 2.45 (2.5-4.0cm) Aortic Root 2.92 (2.2-3.7cm) Aortic Cusp Exc 1.87 (1.5-2.0cm) Aortic Valve AoV Peak Surendra. 117.7 cm/s AoV VTI 18.7 cm AO Peak GR. 5.5 mmHg AO Mean GR. 3 mmHg LVOT VTI 14.98 cm LVOT Peak Surendra. 85.3 cm/s ROSI(VTI)/BSA 3.08 cm2/m2 ROSI (VTI) 3.08 cm2 Mitral Valve MV E Velocity 59.3 cm/s MV Peak Gr. 2 mmHg MV DECEL TIME 320 ms MV A Velocity 69.8 cm/s MV PHT 52 ms E/A Ratio 0.8 MVA (PHT) 4.23 cm2 MV VMax70.5 cm/s Pulmonary Vein S1 Velocity 51.1 cm/s D2 Velocity 35.2 cm/s PVa Fkbunabv15.1 cm/s PVa Eiqgmcch195 msec LEFT VENTRICLE Normal LV size and wall thickness. Overall systolic function is normal. LVEF is 65-70%. RIGHT VENTRICLE RV is normal size and function. ATRIA The left atrium size is normal. The right atrium size is normal. AORTIC VALVE Trileaflet AV appears mildly sclerotic without stenosis. Trace insufficiency. MITRAL VALVE Mild MV annular calcification without stenosis. Trace regurgitation. TRICUSPID VALVE TV appears structurally normal with trace regurgitation. PULMONIC VALVE Normal PV without stenosis, physiologic insufficiency. GREAT VESSELS Aortic root is normal in size. Ascending aorta is normal in size. PERICARDIUM Normal pericardium. No effusion. Other Information Study Quality: Adequate Conclusion Normal LV size and wall thickness. Overall systolic function is normal. LVEF is 65-70%. RV is normal size and function. The left atrium size is normal. Trileaflet AV appears mildly sclerotic without stenosis. Trace insufficiency. Mild MV annular calcification without stenosis. Trace regurgitation. TV appears structurally normal with trace regurgitation. Normal pericardium. No effusion.
--- NOTE | 2025-01-25 16:46 | PROGRESS NOTE- Residence ---
Progress Note - Resident Providers to CC Resident Creating Document: FERNANDA CHEUNG RES CC: LEONID STARK MD ~ Antibiotic Timeout Antibiotic Ordered?: No Subjective Patient was examined bedside before the catheterization today. Patient states that she continues to have minimal amount of chest pressure, vomited last night and continues to have nausea this morning. Patient underwent catheterization with stent placement in the LCX this morning. Objective Vital Signs Date Time Temp Pulse Resp B/P (MAP) Pulse Ox O2 Delivery O2 Flow Rate FiO2 01/25/25 14:00 69 16 117/61 (79) 99 01/25/25 11:20 97.6 Room Air 0.0 Result Diagram: 01/25/25 0050 01/25/25 0050 General: Alert, awake, oriented, not in acute distress HEENT: PERRLA, no icterus, pallor, lymphadenopathy, carotid bruit Respiratory system: Multi Spider angiomata present in the chest, Bilateral vesicular breath sounds heard, no adventitious breath sounds CVS: S1-S2 heard, no murmurs/rubs/gallop GI: Soft, nontender, no organomegaly, no guarding/rigidity, bowel sounds present Neuro: No focal neurological deficits present Extremities: No edema cyanosis clubbing, no erythema, active bleeding of the site of the access for catheterization Musculoskeletal: Swelling and deformity of the left forearm at the site of elbow, surgical scar on the right wrist status post surgery for arthritis, surgical scar present on the right knee Skin: Warm and dry Coagulation Studies Laboratory Tests Test 01/24/25 17:23 01/25/25 00:50 Activated Partial Thromboplast Time 27 SECONDS (22-32) Prothrombin Time 10.3 SECONDS (9.0-12.0) INR International Normalized Ratio 1.0 INR APTT (Heparin Protocol) 39 SECONDS (45-60) L Coagulation Comments Assessment Assessment A 54-year-old female presented to the ED with a crushing chest pain. On further investigations patient was found to have up trending troponins and EKG changes. Patient is admitted for the evaluation and management of NSTEMI. Underwent catheterization with Dr. Ashish Knapp this morning with stent placement in the left circumflex Plan Plan NSTEMI status post stent placement in LCX BRADFORD: 3 Discontinue heparin drip, started on aspirin 81 mg and Brilinta 90 mg Echo: LVEF is 65-70%. Trileaflet AV appears mildly sclerotic without stenosis Continue atorvastatin 80 mg from today Optimization with GDM T: Started on metoprolol tartrate 25 mg p.o. b.i.d. and lisinopril 10 mg once daily Sublingual nitroglycerin 0.4 mg Q 5 minutes p.r.n. Dilaudid for uncontrolled chest pain with sublingual nitroglycerin Rheumatoid arthritis with residual deformities Mildly elevated ESR, CRP, normal lactic acid Ultrasound abdomen: Echogenic liver which can be seen with hepatic steatosis, cirrhosis. Might benefit from outpatient follow up Continue meloxicam and ibuprofen Hyperlipidemia LDL: 109 LDL goal less than 70 Continue atorvastatin 80 mg Anxiety/depression Continue escitalopram oxalate, trazodone Code status: Full code Diet: Heart healthy diet, NPO after midnight Anticoagulation: Brilinta, aspirin 81 mg Disposition: Continue care in PCU, probable discharge tomorrow Fernanda Cheung MD Internal Medicine, PGY 1 Date of Service: Jan 25, 2025 Billing Provider: LEONID STARK MD, SIVA, RES Jan 25, 2025 16:46
[2025-01-25] MEDS: ibuprofen tablet 400 MG TABLET PO SCH (16:47)
[2025-01-25] MEDS: lisinopril 10 MG tablet PO SCH (16:50)
--- NOTE | 2025-01-25 19:48 | CARDIOLOGY REPORT ---
DATE OF SERVICE: 01/25/2025 DICTATING PHYSICIAN: Marcio Knapp MD CARDIAC CATHETERIZATION REPORT DATE OF STUDY: 01/25/2025 PROCEDURES: * Access to the right radial artery. * Selective coronary angiography. * Left ventriculography. * Access to the right femoral artery. * Selective coronary angiography. * Angioplasty of the circumflex coronary artery. * Stenting x 1 of the circumflex coronary artery. * Hemostasis to the right common femoral artery using the Perclose device. INDICATION FOR PROCEDURE: Non-STEMI. PHYSICIAN: Marcio Knapp MD DESCRIPTION OF PROCEDURE: After informed consent was obtained, the patient was brought to the cardiac research laboratory technician in a fasting state where the patient was prepped and draped in the usual sterile manner. After adequate anesthesia was obtained using 1% lidocaine to the right wrist, a 5-moldovan sheath was inserted into the right radial artery using a modified Seldinger technique. Thereafter, using a cocktail of heparin, verapamil and nitroglycerin, the cocktail was given via the sheath in the radial artery to prevent coronary vasospasm and for anticoagulation. Next, using an Ultimate-2 catheter, the catheter was advanced under fluoroscopy guidance into the ascending aorta. The catheter was then manipulated to engage the left coronary system and coronary angiography of the left system was obtained. Next, the catheter was disengaged and manipulated to engage the right coronary artery and selective coronary angiography of the right coronary artery was obtained. Thereafter, the catheter was disengaged from the right coronary artery and manipulated to advance into the left ventricle where left ventriculography in the PARHAM position was obtained. The catheter was then removed. Hemostasis was obtained using the radial band. ADDENDUM TO THE MACRO: Because of the patient's height (4 feet 11 inches) and anatomy, unable to engage a guide with adequate backup support for PCI. Access to the right common femoral artery was then obtained. Next, using an XBC 3.5, the left system was intubated. PCI was then performed as described below. HEMODYNAMICS: For the patient's hemodynamics, please refer to the event log. Left ventricular end diastolic pressure was 4 mmHg. There was no significant gradient across the aortic valve on catheter pull back. FINDINGS: The left main coronary artery is a short vessel free of significant disease. The left anterior descending coronary artery is a medium caliber vessel with luminal irregularities. The circumflex coronary artery has a 90-degree takeoff. The obtuse marginal branch immediately at its takeoff has a 98% stenosis. The right coronary artery is a large dominant vessel with mild luminal irregularities. Left ventriculography revealed the presence of normal left ventricular function. PERCUTANEOUS CORONARY INTERVENTION: Using an XB 3.5 LAD guiding catheter, the left main coronary artery was intubated. A Choice PT wire was then navigated across the lesion. Using a 2.5 x 12 mm balloon, predilation of the lesion was performed to rated burst atmospheres. Next, using a 3.5 x 18 Rod [place] stent, stent was advanced across the lesion where it was deployed to nominal atmospheres. Followup angiography revealed excellent angiographic results. IMPRESSION: * Angioplasty/stenting of a 98% circumflex coronary artery stenosis with a 3.5 x 18 Rod [place] stent with excellent angiographic results and 0% residual. The patient had BRADFORD 3 flow both pre and post procedure. * Mild luminal irregularities of the LAD and circumflex coronary artery. * Normal left ventricular function. Left ventricular end diastolic pressure was 4 mmHg. Marcio Knapp MD TID: [id number] RECEIPT: [id number] HENRRY/LISBETH
[2025-01-25] MEDS ORDERED: aspirin 81mg, enteric-coated 1 TAB TABLET.DR PO SCH (20:00)
[2025-01-25] MEDS: metoprolol tartrate 25mg tablet PO SCH (20:00)
[2025-01-25] MEDS ORDERED: carVEDilol 3.125mg tablet PO SCH (20:00)
[2025-01-25] MEDS: clonazePAM 1mg tablet PO SCH (20:33)
[2025-01-25] MEDS: ESCITALOPRAM 10 mg tablet 10 MG TABLET PO SCH (20:34)
[2025-01-25] MEDS: ticagrelor 90mg tablet PO SCH (20:34)
[2025-01-25] MEDS: traZODone 150mg tablet PO SCH (20:34)
[2025-01-26] VITALS (15 sets, daily range): BP systolic 86–117; BP diastolic 39–73; PULSE 61–86; RESP 12–19; TEMP 97–97.2; O2SAT 92–96
[2025-01-26] MEDS: NS IV ONE (01:03)
[2025-01-26] MEDS: NOREPINEPHRINE 8 MG/250 ML IV ONE (01:03)
[2025-01-26] MEDS ORDERED: NORepinephrine 8mg/ 250ml NS 250 ML IV PRN (01:40)
[2025-01-26] MEDS: normal saline 1000ml 1,000 ML IV SCH (02:23)
[2025-01-26 05:59] LABS: BASOPHILS % (AUTO) 0.4 % (0-1); EOSINOPHILS # (AUTO) 0.2 X10'3 (0-0.9); EOSINOPHILS % (AUTO) 2.6 % (0-6); HEMATOCRIT 37.1 % (35.0-45.0); HEMOGLOBIN 12.7 g/dl (12.0-16.0); LYMPHOCYTES % (AUTO) 21.1 % (21-51); MEAN CORPUSCULAR HEMOGLOBIN 29.7 PG (27.0-31.0); MEAN CORPUSCULAR HGB CONC 34.3 g/dL (33.0-36.5); MEAN CORPUSCULAR VOLUME 86.6 FL (78-98); MEAN PLATELET VOLUME 8.4 FL (7.4-10.4); MONOCYTES # (AUTO) 0.7 X10'3 (0-0.9); MONOCYTES % (AUTO) 7.5 % (2-12); NEUTROPHILS # (AUTO) 6.4 X10'3 (1.8-7.7); NEUTROPHILS % (AUTO) 68.4 % (42-75); PLATELET COUNT 316 X10'3 (140-440); RED BLOOD COUNT 4.28 X10'6 (4.20-5.60); RED CELL DISTRIBUTION WIDTH 12.5 % (11.5-14.5); WHITE BLOOD COUNT 9.4 X10'3 (4.5-11.0)
[2025-01-26 06:13] LABS: PROTHROMBIN TIME 10.3 SECONDS (9.0-12.0)
[2025-01-26 06:23] LABS: ALANINE AMINOTRANSFERASE 25 U/L (12-78); ALBUMIN 2.8 G/DL (3.4-5.0); ALBUMIN/GLOBULIN RATIO 0.7 (1.1-1.5); ALKALINE PHOSPHATASE 79 IU/L (46-116); ANION GAP 8 (8-16); ASPARTATE AMINO TRANSFERASE 59 U/L (10-37); BILIRUBIN,TOTAL 0.4 MG/DL (0.1-1.0); BLOOD UREA NITROGEN 19 MG/DL (7-18); BUN/CREATININE RATIO 27.9 (10.0-20.0); CALCIUM 8.1 MG/DL (8.5-10.1); CHLORIDE 104 MMOL/L (99-107); CREATININE 0.68 MG/DL (0.40-0.90); GLUCOSE 99 MG/DL (70-104); MAGNESIUM 2.1 MG/DL (1.5-2.4); POTASSIUM 3.1 MMOL/L (3.5-5.1); SODIUM 139 MMOL/L (135-145); TOTAL CARBON DIOXIDE 26.7 MMOL/L (24-32); TOTAL PROTEIN 6.6 G/DL (6.4-8.2); eCRCL 64 ML/MIN; eGFR 90 ML/MIN
[2025-01-26] MEDS ORDERED: atorvastatin 20mg tablet PO SCH (08:00)
[2025-01-26] MEDS: aspirin 81mg, enteric-coated 1 TAB TABLET.DR PO SCH (08:44)
[2025-01-26] MEDS: MELOXICAM 7.5 MG TABLET PO SCH (08:44)
[2025-01-26] MEDS: potassium Cl 20 mEq SR tablet PO PRN (08:45)
[2025-01-26] MEDS: LORazepam 1 MG tablet PO SCH (08:48)
[2025-01-26] MEDS ORDERED: NO HOME MEDS (11:23)
[2025-01-26] MEDS ORDERED: ATOR-429 PO (12:29)
[2025-01-26] MEDS ORDERED: TICA90TA PO (12:29)
[2025-01-26] MEDS ORDERED: MELO-100 PO (12:29)
[2025-01-26] MEDS ORDERED: LISI10TA27 PO (12:29)
[2025-01-26] MEDS ORDERED: LOP25T PO (12:29)
[2025-01-26] MEDS ORDERED: ASPI-1071 PO (12:29)
[2025-01-26] MEDS ORDERED: NITR0.4T51 SL (12:29)
[2025-01-26] MEDS: ondansetron/PF 4mg/2ml inj IV PRN (13:11)
--- NOTE | 2025-01-26 15:05 | DISCHARGE SUMMARY-Residence ---
Discharge Summary Providers to CC Resident Creating Document: OMID SNYDER RES ~ Discharge Summary Admission Diagnosis: UNSTABLE ANGINA Hospital Course DATE OF ADMISSION: DATE OF DISCHARGE: Discharge Diagnosis\Comment: NSTEMI status post stent placement in LCX with BRADFORD score: [address] Ashish Knapp Rheumatoid arthritis with residual ([place]) deformities Hyperlipidemia Anxiety/depression Operations\Procedures: Cardiac Angiography and Angioplasty with cardiac one stent by Dr Ashish Knapp on 01/25/25 Consultants: Dr Ashish Knapp's cardiology team Complications: None Condition on DC: Stable New Medications: Atorvastatin Calcium* (Lipitor*) 80 Mg Tablet 1 TAB PO DAILY for 30 Days, #30 TAB Aspirin (Ecotrin*) 81 Mg Tablet.dr 1 TAB PO DAILY for 30 Days, #30 TAB.SR Lisinopril (Lisinopril) 10 Mg Tablet 10 MG PO DAILY for 30 Days, #30 TAB Meloxicam* (Meloxicam*) 7.5 Mg Tablet 15 MG PO DAILY for 30 Days, #30 TAB Metoprolol Tartrate* (Lopressor tablet*) 25 Mg Tablet 25 MG PO BID for 30 Days, #60 TAB Hold for SBP below 100mm Hg Hold for Heart Rate below 60. Nitroglycerin SL* (Nitrostat SL*) 0.4 Mg Tablet 0.4 MG SL Q5MIN PRN for X3 CHEST PAIN-NOTIFY MD for 14 Days, #20 TAB Ticagrelor (Brilinta) 90 Mg Tablet 90 MG PO BID for 30 Days, #60 TAB Continued Medications: Home Med List (No Home Medications) Each Discharge Summary: A 54-year-old female presented to the ED with a crushing chest pain. Patient was admitted to the hospital for finding from further investigations with trending up troponins and EKG changes for the evaluation and management of NSTEMI. Hospital course: Her 2D TTE Echo: LVEF is 65-70%. Trileaflet AV appears mildly sclerotic without stenosis. Because of her Trending up serial troponin levels [phone] with the EKG changes of borderline left axis deviation, lateral infarct acute LAD, ST elevation with possible inferior injury ID, patient was put on the IV Heparin drip and urgently underwent cardiac catheterization procedure done by Dr. Ashish Knapp with a stent placement in the left circumflex coronary artery. He was also put on the aspirin 81 mg and Brilinta 90 mg, atorvastatin 80 mg and metoprolol tartrate 25 mg p.o. b.i.d. and lisinopril 10 mg once daily. He also was on Sublingual nitroglycerin 0.4 mg Q 5 minutes p.r.n. There were mildly elevated ESR, CRP, normal lactic acid in the background history of RA with deformities. Ultrasound abdomen: Echogenic liver which can be seen with hepatic steatosis, cirrhosis. LDL was 109. All of her home medications were reconciled and review appropriately, continue accordingly including escitalopram oxalate and trazodone. DVT prophylaxis was achieved with the IV heparin and followed by SCDs until fully ambulatory during her hospitalization. After cardiac stent procedure, the patient was found to have soft low blood pressure, patient was placed in CICU immediate after the procedure but patient was not on any pressor to elevate her blood pressure, but only with the IV fluids supplement. Today, all of the labs were reviewed WNL with WBC 9.4, hemoglobin 12.7, hematocrit 37.1, platelets 316, serum sodium 139, potassium 3.6, chloride 104, BUN 19, creatinine 0.68, RBS 99, total bilirubin 0.4, AST 59, ALT 25, with a lipid profile of total cholesterol 169, TG 98, LDL 109, HDL 51. All of her questions and concerns were addressed with the best knowledge of our team before she was discharged back to home. All of the vitals were stable at the moment with temp 97.1 F, VA 70/minute, RR 15/minute, BP 113/73 mm Hg, pulse oximetry 96% on room air. On exam, General: Well alert, well oriented, not confused, not agitated, not in acute distress, well cooperated during the physical. HEENT: Conjunctive are pink, sclerae clear, no icterus, pupil is equal in both sides, reactive to light, no ear discharge, no pharyngeal erythema or an edema, mouth and lips are moist. Neck: Supple, no JVD, no lymphadenopathy and thyromegaly. Lungs and Chest :Equal air entry on both lungs, Bilateral vesicular breath sounds heard, no adventitious breath sounds. Multi Spider angiomata present in the chest. Heart: S1-S2 regular sinus rhythm and, regular rate, no gallops, no rubs, no murmurs Abdomen: No visible peristalsis, Bowel sounds present on auscultation, soft, nontender, no guarding, no rigidity Extremities: No obvious deformities, no pitting edema bilaterally, capillary refill intact, able to wiggle toes both sides, peripheral pulsations are intact on both sides. 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 -follow up with Dr. Knapp office in 1-2 weeks after discharge -medication compliance is important including double antiplatelet therapy, atorvastatin, metoprolol, and other medications -Can continue the NSAIDs including Meloxicam for pain but not encouraged in the setting of CAD, should consult with the PCP -strongly encouraged to quit smoking and cut down excessive heavy alcohol drinking -strongly encouraged for heart healthy diet along with modify active lifestyle with exercise -follow up with the PCP in 1-2 weeks after discharge for further management including labs check -maintain optimal blood pressure and blood glucose levels along with goal of LDL < 55. -Should follow up with PCP for the another USG abdomenial survey for her possible fatty infiltration of liver possibly from the steatotic liver with the continuation of Atorvastatin and periodically recheck the LFTs and Lipid panel. Resident MD attestation: Patient was seen, examined and discussed with attending MD, Dr. Jasmine SNYDER MD Internal Medicine Resident, PGY2 [facility] *Problems/Diagnosis: (1) NSTEMI (non-ST elevated myocardial infarction) Status: Resolved Total Time Spent on D/C: > 30 Minutes Date of Service: Jan 26, 2025 Billing Provider: LEONID STARK MD, TIN, RES Jan 26, 2025 14:46
== END 2025-01-26 13:43 | disposition home or self-care (01) | DRG 167 ==
LOC: ER 16:45 → ED HOLD 17:58 → PCU 3S 21:30 → CICU 2S 01-26 01:05
PROVIDERS: ADMIT Family Medicine; ATTEND Family Medicine
PROC: 027004Z Dilation of Coronary Artery, One Artery with Drug-eluting Intraluminal Device, Open Approach (ICD-10-PCS; principal; 2025-01-25)
PROC: 4A023N7 Measurement of Cardiac Sampling and Pressure, Left Heart, Percutaneous Approach (ICD-10-PCS; 2025-01-25)
PROC: B2111ZZ Fluoroscopy of Multiple Coronary Arteries using Low Osmolar Contrast (ICD-10-PCS; 2025-01-25)
PROC: B2151ZZ Fluoroscopy of Left Heart using Low Osmolar Contrast (ICD-10-PCS; 2025-01-25)
PROC: B41F1ZZ Fluoroscopy of Right Lower Extremity Arteries using Low Osmolar Contrast (ICD-10-PCS; 2025-01-25)
DX: I21.4 Non-ST elevation (NSTEMI) myocardial infarction (principal); K74.60 Unspecified cirrhosis of liver; E78.5 Hyperlipidemia, unspecified; K76.0 Fatty (change of) liver, not elsewhere classified; F41.9 Anxiety disorder, unspecified; G89.29 Other chronic pain; M06.9 Rheumatoid arthritis, unspecified; F32.A Depression, unspecified; Z87.442 Personal history of urinary calculi; Z88.8 Allergy status to other drugs, medicaments and biological substances; Z79.899 Other long term (current) drug therapy
CPT/HCPCS: 36415; 71045; 76700; 80053; 80061; 81003; 82948; 83036; 83605; 83735; 83880; 84484; 85025; 85610; 85651; 85730; 86140; 87040; 87081; 93005; 93306; 93458; 96374; 96375; 99152; 99153; 99285; A6258; A6449; C1725; C1751; C1760; C1769; C1874; C1894; C9600; G0378; J0780; J1171; J1644; J1720; J1940; J2003; J2250; J2405; J3010; J3490; J7030; J7040; Q9967

== ENCOUNTER 2025-08-26 13:01 | Emergency (ER) | payer MEDICAID ==
[~2025-08-26] VITALS: Ht 149.9 cm; Wt 71.6 kg
[~2025-08-26 13:01] MED LIST changes: +ASPI-1071 PO; -CLON-527 PO; -ESCI10TA45 PO; -HYDR-4383 PO; -HYDR1TAB PO; -IBUP-1984 PO; -LEVO500T2 PO; +LISI10TA27 PO; +LOP25T PO; -LORA1TAB PO; +MELO-100 PO; -MELO-102 PO; -METR-159 PO; +NITR0.4T51 SL; +NO HOME MEDS; -ONDA4TAB59 PO; -ONDA4TAB6 PO; -ORPH100T4 PO; +TICA90TA PO; -TRAZ-91 PO; -ZOF4T PO
[2025-08-26 13:28] VITALS: BP 121/71; PULSE 95; RESP 18; O2SAT 97
[2025-08-26] MEDS ORDERED: LOP12.5T PO (14:14)
[2025-08-26] MEDS ORDERED: LISI10TA27 PO (14:14)
--- NOTE | 2025-08-26 14:15 | Physician Documentation ---
History of Present Illness ~ Chief Complaint: Medical Clearance Stated Complaint: MED CLEARANCE Time Seen by MD: 13:43 Primary Medical Doctor: Roel pelaez [facility] Patient is a very pleasant 55-year-old female that presents to the emergency department for evaluation for medical clearance so that she can present to a rehabilitation center for methamphetamine. Patient denies any symptoms at this time. Patient reports that she does have a cardiac history that she takes medications for. Patient's vital signs are stable inappropriate here in the triage room. We will refill the patient's metoprolol and lisinopril for her to take to the rehabilitation center. Tetanus within 5 years?: Yes Medication Reconciliation Allergies: Coded Allergies: morphine (Verified Allergy, Unknown, 08/26/25) TOLERATED NORCO AND HYDROMORPHONE MULTIPLE TIMES Scheduled Aspirin (Ecotrin*), 1 TAB PO DAILY Lisinopril (Lisinopril), 10 MG PO DAILY Meloxicam* (Meloxicam*), 15 MG PO DAILY Metoprolol Tartrate* (Lopressor tablet*), 25 MG PO BID Ticagrelor (Brilinta), 90 MG PO BID Scheduled PRN Nitroglycerin SL* (Nitrostat SL*), 0.4 MG SL Q5MIN PRN for X3 CHEST PAIN-NOTIFY MD Miscellaneous Medications Home Med List (No Home Medications), (Reported) Past Medical History Past Medical History: Bowel Obstruction, Diverticulitis, Kidney Stones, Chronic Back Pain, Anxiety Past Surgical History: orthopedic surgeries Alcohol Use: None Drug Use: methamphetamine Lives with: S/O, Family Lives In: Home Occupation: disabled Review of Systems ROS As stated above in the HPI, otherwise all systems are reviewed and negative. Physical Exam Vital Signs: Temperature: 98.3, Source: Oral, Heart Rate: 95, Respiratory Rate: 18, BP: 121/71, Pulse Oximetry: 97, Weight: 71.600 Oxygen Flow Rate: 0 Physical Exam VITALS: Reviewed and as above. GENERAL: Alert, no apparent distress. HEENT: Normocephalic, atraumatic, PERRL, EOMI, dry mucosa, no erythema RESPIRATORY: Lungs clear, normal breath sounds, no respiratory distress. CHEST: No accessory muscle use, no retractions CV: Regular rate, rhythm, no edema, no murmur, No: JVD GI: Soft, non-tender, bowels sounds present, no rebound, guarding, or rigidity BACK: No CVA tenderness, or swelling MUSCULOSKELETAL No deformities, no edema SKIN: Warm and dry, no rash NEURO: Oriented x4, No motor or sensory deficit PSYCH: Normal mood and affect, no agitation Progress Results/Orders Results/Orders Vital Signs 08/26/25 13:28 Temp 98.3 Pulse 95 Resp 18 B/P (MAP) 121/71 Pulse Ox 97 O2 Flow Rate 0 Medical Decision Making Additional information obtaine: other Findings Patient is a very pleasant 55-year-old female that presents to the emergency department for evaluation for medical clearance so that she can present to a rehabilitation center for methamphetamine. Patient denies any symptoms at this time. Patient reports that she does have a cardiac history that she takes medications for. Patient's vital signs are stable inappropriate here in the triage room. We will refill the patient's metoprolol and lisinopril for her to take to the rehabilitation center. Differential Dx:Considerations: Include: Intoxication-Alcohol, Intoxication- Other drug, Personality disorder, Substance abuse disorder, Acute delirium, Closed head injury, Cervical spine injury, Skull fracture, Fracture(s), Abrasion, Contusion, Foreign body, Hematoma, Laceration, Alcohol withdrawl syndrom, Encephalopathy, Hepatitis, Medically stable, Other Departure Disposition: 01 HOME / SELF CARE / HOMELESS Impression: Primary Impression: General medical exam Additional Impression: Medication refill Condition: Stable Discharge Instructions: Medical Screening Exam Additional Instructions: Patient is a very pleasant 55-year-old female that presents to the emergency department for evaluation for medical clearance so that she can present to a rehabilitation center for methamphetamine. Patient denies any symptoms at this time. Patient reports that she does have a cardiac history that she takes medications for. Patient's vital signs are stable inappropriate here in the triage room. We will refill the patient's metoprolol and lisinopril for her to take to the rehabilitation center. Patient is medically cleared to present to the rehabilitation center at this time. Referrals: NO PRIMARY CARE PROVIDER (PCP) Prescriptions Metoprolol Tartrate (Lopressor tablet) 25 Mg Tablet 1 TAB PO Q12H for 30 Days, #60 TAB Hold for SBP below 100mm Hg Hold for Heart Rate below 60. Prov: MARIA VICTORIA SMITH BARREL BRIDGE ASSEMBLER 08/26/25 Lisinopril (LISINOPRIL) 10 Mg Tablet 1 TAB PO DAILY for 30 Days, #30 TAB 0 Refills Prov: MARIA VICTORIA SMITH 08/26/25 Education Educated: Patient Educated regarding: diagnosis, treatment, need for follow up Signature Scribe Signature: A Attestation: Scribed for Maria Victoria Smith by WM Escalante . 08/26/25 14:15 MARIA VICTORIA SMITH Aug 26, 2025 14:15
[2025-08-26 15:12] VITALS: TEMP 98.3
== END 2025-08-26 15:12 | disposition home or self-care (01) ==
LOC: ER 13:01
DX: Z00.00 Encounter for general adult medical examination without abnormal findings (principal); G89.29 Other chronic pain; F15.90 Other stimulant use, unspecified, uncomplicated; F41.9 Anxiety disorder, unspecified; Z87.442 Personal history of urinary calculi; Z88.5 Allergy status to narcotic agent; Z76.0 Encounter for issue of repeat prescription; Z79.82 Long term (current) use of aspirin; Z79.899 Other long term (current) drug therapy; Z98.890 Other specified postprocedural states
CPT/HCPCS: 99282